=== PATIENT | female | born 1950 | race Caucasian/White ===

== ENCOUNTER → 2023-12-07 10:01 | Outpatient (REF) | payer MEDICARE, SELFPAY ==
[2023-12-07 11:05] LABS: % Basophils 0.5 % (0-2); % Eosinophils 1.6 % (0-6); % Immature Granulocytes 0.3 % (0-0.5); % Lymphocytes 27.9 % (20.5-51.1); % Neutrophils 63.7 % (42.2-75.2); Absolute Eosinophils 0.1 10^3/uL (0-0.7); Absolute Lymphocytes 1.8 10^3/uL (1.2-3.4); Absolute Monocytes 0.4 10^3/uL (0.1-0.6); Absolute Neutrophils 4.1 10^3/uL (1.4-6.5); Hematocrit 41.1 % (37.0-47.0); Hemoglobin 13.7 g/dL (12.0-16.0); Mean Corp Hgb Conc. 33.3 g/dL (33.0-37.0); Mean Corpuscular Hgb 30.1 pg (27.0-31.0); Mean Corpuscular Volume 90.3 fL (81.0-99.0); Mean Platelet Volume 9.2 fL (7.4-10.4); Nucleated Red Blood Cells % 0 %; Platelet Count 284 10^3/uL (130-400); Red Blood Cell Count 4.55 10^6/uL (4.20-5.40); Red Cell Dist. Width 13.6 % (11.5-14.5); White Blood Cell Count 6.4 10^3/uL (4.8-10.8)
[2023-12-07 11:53] LABS: Glycohemoglobin (HgbA1c) 5.7 % (4.0-5.6)
[2023-12-07 12:44] LABS: ALT (SGPT) 19 U/L (0-35); AST (SGOT) 29 U/L (14-36); Alkaline Phosphatase 91 U/L (38-126); Blood Urea Nitrogen 14 mg/dl (7-17); Calcium 9.2 mg/dl (8.4-10.2); Carbon Dioxide 26 mmol/L (22-30); Chloride 104 mmol/L (98-107); Glucose 86 mg/dl (70-99); HDL Cholesterol 58 mg/dl; LDL Cholesterol, Calculated 124 mg/dl; Sodium 139 mmol/L (135-145); Total Bilirubin 0.5 mg/dl (0.2-1.3); Total Cholesterol 232 mg/dl (50-199); Triglyceride 252 mg/dl (10-149); Very Low Density Lipoprotein 50 mg/dl (0-30); eGFR > 60.00
[2023-12-08 15:08] LABS: Lyme Antibody Screen, EIA Presump. Positive (Negative)
== END ==
LOC: REG 10:01
PROVIDERS: ATTENDING PHYSICIAN Physician Assistant
DX: M43.6 Torticollis (principal); R50.9 Fever, unspecified; R52 Pain, unspecified; E78.2 Mixed hyperlipidemia; R51.9 Headache, unspecified; R73.03 Prediabetes
CPT/HCPCS: 36415; 80053; 80061; 83036; 85025; 86617; 86618

== ENCOUNTER → 2024-04-10 11:20 | Outpatient (REF) | payer MEDICARE, SELFPAY | LOC: WDC 11:20 | PROVIDERS: ATTENDING PHYSICIAN Obstetrics & Gynecology Gynecology; FAMILY PHYSICIAN Family Medicine | DX: M85.89 Other specified disorders of bone density and structure, multiple sites (principal); Z12.31 Encounter for screening mammogram for malignant neoplasm of breast | CPT/HCPCS: 77063; 77067; 77080 ==

== ENCOUNTER 2024-04-28 16:54 | Emergency (ER) | payer MEDICARE, SELFPAY ==
[2024-04-28 17:02] VITALS: BP 150/88
[2024-04-28 17:16] LABS: % Eosinophils 3.7 % (0-6); % Immature Granulocytes 0.2 % (0-0.5); % Lymphocytes 33.3 % (20.5-51.1); % Monocytes 7.7 % (1.7-9.3); % Neutrophils 54.1 % (42.2-75.2); Absolute Basophils 0.1 10^3/uL (0-0.2); Absolute Eosinophils 0.2 10^3/uL (0-0.7); Absolute Monocytes 0.5 10^3/uL (0.1-0.6); Absolute Neutrophils 3.2 10^3/uL (1.4-6.5); Hematocrit 43.6 % (37.0-47.0); Hemoglobin 14.7 g/dL (12.0-16.0); Mean Corp Hgb Conc. 33.7 g/dL (33.0-37.0); Mean Corpuscular Hgb 29.5 pg (27.0-31.0); Mean Corpuscular Volume 87.4 fL (81.0-99.0); Mean Platelet Volume 8.9 fL (7.4-10.4); Nucleated Red Blood Cells % 0 %; Platelet Count 323 10^3/uL (130-400); Red Blood Cell Count 4.99 10^6/uL (4.20-5.40); Red Cell Dist. Width 13.2 % (11.5-14.5)
[2024-04-28 17:45] LABS: ALT (SGPT) 26 U/L (0-35); AST (SGOT) 34 U/L (14-36); Albumin 4.1 g/dl (3.5-5.0); Alkaline Phosphatase 103 U/L (38-126); Blood Urea Nitrogen 13 mg/dl (7-17); Calcium 9.6 mg/dl (8.4-10.2); Carbon Dioxide 24 mmol/L (22-30); Chloride 105 mmol/L (98-107); Glucose 113 mg/dl (70-99); Potassium 4.4 mmol/L (3.5-5.1); Sodium 142 mmol/L (135-145); Total Bilirubin 0.3 mg/dl (0.2-1.3); Total Protein 6.9 g/dl (6.3-8.2); eGFR > 60.00
--- NOTE | 2024-04-28 18:27 | ED.GENMED ---
Addendum entered and electronically signed by Maurice Swain PA-C 04/30/24 07:29:
Preliminary Lyme test presumptively positive. Relayed this information to the patient. She states she has a Lyme in the past. Will continue doxycycline until Western blot returns. She was advised that she would receive a call upon receipt of the
Western blot
Original Note:
History of Present Illness
General
Chief Complaint: Headache
Time Seen by Provider: 04/28/24 18:10
History of Present Illness
History of Present Illness:
Patient is a 73-year-old with history of hyperlipidemia, migraines presenting to the emergency department with a headache. Patient states that for the past 3 days she has had a slow developing left-sided headache. It is constant headache to the
left side of her head. It is pounding. She is having some nausea photophobia phonophobia associated with it. She also having some congestion and body wide aches. This is similar to when she had Lyme disease. She states that she has had it 4
times now. Most recently she had Lyme's in November and had the same similar symptoms. She denies any fevers or chills. No neck stiffness. No numbness tingling. No weakness. She did take Tylenol and Excedrin without any relief. She did not take
her triptan's as it was too late. Usually her headaches come and go however this headache has been constant. It is not the worst headache of her life. She denies any vision changes. She does not remember noticing any rashes but does state that
there are frequent ticks on [place]
Past History
Past History
ED Past Medical History: Hypercholesterolemia and Other (OA, renal calc, interstitial cystitis, bowel obstruction)
ED Past Surgical History: Bowel resection (bladder lift) and Gynecological
Social History
Tobacco: Non-smoker
Alcohol: None
Drug: None
Personal:
Living: with family
Employment: Retired
Family History
Family History: Other (Noncontributory)
Phy Exam
Physical Exam
Physical Exam:
GENERAL: in no acute distress
HEENT: normocephalic, extraocular movements intact, moist oral mucosa
NECK: normal inspection
RESPIRATORY: no respiratory distress, clear to auscultation bilaterally
CARDIOVASCULAR: regular rate and rhythm
ABDOMEN/: soft, non-distended, non-tender to palpation, no rebound or guarding
EXTREMITIES: non-tender, no edema/swelling
NEUROLOGIC: alert and oriented x 3, cranial nerves II-XII intact, right upper extremity strength 5/5, left upper extremity strength 5/5, right lower extremity strength 5/5, left lower extremity strength 5/5, normal sensation to light touch, normal
[id number] and [id number], gait not tested formally
SKIN: warm, no rash
Course
Orders/Labs/Results
Orders:
Orders
04/28/24 17:10
CMP [Comprehensive Metabolic Panel] Urgent
Complete Blood Count/With Diff Urgent
Lyme Progressive Urgent
04/28/24 18:24
Diphenhydramine [Benadryl] 25 mg IV NOW STA
Ketorolac [Toradol] 15 mg IV NOW STA
Metoclopramide [Reglan] 10 mg IV NOW STA
04/28/24 18:51
COVID-19 Antigen Urgent
Source: Nasal Swab
Influenza A+B Rapid Molecular Urgent
NEYMAR Source: Nasal Swab
Specimen Description:
04/28/24 19:56
Magnesium Sulfate 1 G/D5w [Magnesium Sulfate] 1 gm in 100 ml IV NOW
Prochlorperazine [Compazine] 5 mg IV NOW STA
Abnormal Lab Results
04/28/24
17:10
Glucose 113 H mg/dl
(70-99)
04/28/24 17:10
04/28/24 17:10
Vital Signs
Initial and Last Documented VS:
Initial Vital Signs
Temp Pulse Resp BP Pulse Ox
98.1 F 85 16 150/88 97
04/28/24 17:02 04/28/24 17:02 04/28/24 17:02 04/28/24 17:02 04/28/24 17:02
Last Documented Vital Signs
Temp Pulse Resp BP Pulse Ox
98.1 F 70 16 145/87 98
04/28/24 17:02 04/28/24 20:00 04/28/24 20:00 04/28/24 19:35 04/28/24 20:00
MDM/Problems Addressed
Differential Diagnosis Includes:
Patient is a 73-year-old woman with history of prior Lyme disease, migraine presenting to the emergency department with a headache for the past few days. Vitals unremarkable and exam does not show any neurological deficits as well as no rashes.
Differential is broad but consists of COVID versus flu versus possibly Lyme. History and exam not consistent with meningitis or subarachnoid. Will check blood work and test for COVID and flu. Will send off Lyme testing. Will give migraine
cocktail. I did consider obtaining CT scan of the head however given that there are no focal neurodeficits at this time and this is similar to prior headaches we will hold off. If the headache has not improved we will then obtain CT scan.
*Critical Care Note
Total Time (30-74mins, 75-104mins- exclusive of procedures): Not Applicable
Update Note
Update Note:
On reevaluation patient states that her headache is slightly improved though she still having significant pain. I did offer CT scan of the head at this time however she does not want to at this time as she strongly believes that is related to her
Lyme disease. I do think this is appropriate as she has no neurological deficits and the headache is improving. I then ordered second line medications to treat her migraine. On further reevaluation patient states that the pain has improved and
she would prefer to go home. I did offer admission however she will come back if anything changes. We did have a risk versus benefit discussion about empirically starting doxycycline for Lyme. At this time we will start with doxycycline. Patient
will follow-up with Lyme results as well as her PCP. Strict return precautions given.
ED Attending Note
-
Portions of this chart may have been created with voice recognition software.� Occasional wrong word or��sound alike� substitutions may have occurred due to the inherent limitations of voice recognition software.
Discharge Plan
Departure
Patient Disposition: Home (Routine Discharge)
Date of Disposition: 04/28/24
Time of Disposition: 21:17
Patient with high blood pressure during this ER visit?: Yes
Discharge Problem:
Headache
Instructions: Lyme Disease (DC), Doxycycline
Prescriptions:
New
doxycycline hyclate 100 mg capsule
100 mg PO BID 14 Days Qty: 28 0RF
No Action
multivitamin with folic acid [Tab-A-Brittnee] 1 TABLET tablet
1 tab PO DAILY
sumatriptan succinate [Imitrex] 100 MG tablet
100 mg PO PRN PRN (Reason: migraine headache)
potassium citrate 10 MEQ tablet extended release
10 meq PO DAILY
calcium carbonate-vitamin D3 [Oyster Shell Calcium-Vit D3] 500 MG tablet
600 mg PO DAILY
conjugated estrogens [Premarin] 1 APPLIC cream
1 applic vaginal PRN PRN (Reason: vaginal)
Patient Comments:
patient reports she typically takes 2x's a week
conjugated estrogens [Premarin] 0.3 MG tablet
0.3 mg PO DAILY
prednisone 10 MG tablet
10 mg PO DAILY Qty: 10 0RF
Rx Instructions:
Take 40mg for 1 day, then 30mg for one day, then 20mg for one day, then 10mg for one day and stop
metronidazole 500 MG tablet
500 mg PO TID Qty: 21 0RF
ciprofloxacin HCl 500 MG tablet
500 mg PO BID Qty: 14 0RF
Referrals:
Yanira Liang MD [Family Provider] -
Activity Restrictions/Additional Instructions:
You were seen in the Emergency Department today for a headache. While you were here we performed blood work, which was reassuring. Your Lyme testing is in progress. I did empirically start you on doxycycline.
We would like for you to follow up with your primary care physician for further evaluation. If you experience fever, worsening of your symptoms, or develop any other new or concerning symptoms, please return to the Emergency Department immediately.
Please see the attached sheet for additional information.
Interventions
Interventions:
*Risk Screen - Suicide Last Done: 04/28/24 17:02
*General Assessment Last Done: 04/28/24 17:02
*Neglect/Abuse Screening Last Done: 04/28/24 18:23
ED- Fall Risk Assessment Last Done: 04/28/24 18:24
*ED COVID-19 Vaccine History Last Done: 04/28/24 17:02
ED- Neurological Assessment Last Done: 04/28/24 18:24
Discharge Date and Time
Print Language: COLOMBIAN
[2024-04-28] MEDS: TORADOL 15 MG IV (18:54)
[2024-04-28] MEDS: REGLAN 10 MG IV (18:54)
[2024-04-28] MEDS: BENADRYL 25 MG IV (18:54)
[2024-04-28 18:59] VITALS: BMI 24.3
[2024-04-28 19:22] LABS: COVID-19 Antigen Negative (Negative)
[2024-04-28 19:35] VITALS: BP 145/87
[2024-04-28] MEDS: MAGNESIUM SULFATE 100 IV (20:09)
[2024-04-28] MEDS: COMPAZINE 5 MG IV (20:09)
[2024-04-28 21:45] VITALS: BP 132/76
[2024-04-29 11:48] LABS: Lyme Antibody Screen, EIA Presump. Positive (Negative)
[2024-05-01 17:32] LABS: Lyme Ab Western Blot IgG Negative (Negative); Lyme Ab Western Blot IgM Negative (Negative)
== END 2024-04-28 21:47 | disposition home or self-care (01) ==
LOC: EMR 16:54
PROVIDERS: Emergency Medicine; EMERGENCY PHYSICIAN Student in an Organized Health Care Education/Training Program; FAMILY PHYSICIAN Family Medicine
DX: R51.9 Headache, unspecified (principal); E78.5 Hyperlipidemia, unspecified; Z86.19 Personal history of other infectious and parasitic diseases
CPT/HCPCS: 99284; 96374; 96375; 80053; 85025; 86617; 86618; 87502; 87811

== ENCOUNTER → 2024-06-05 12:04 | Outpatient (REF) | payer MEDICARE, SELFPAY ==
[2024-06-05 14:17] LABS: Vitamin D, 25-OH*** 39.9 ng/mL (30-80)
[2024-06-05 14:31] LABS: TSH 1.29 uIU/ml (0.47-4.68)
== END ==
LOC: REG 12:04
PROVIDERS: ATTENDING PHYSICIAN Obstetrics & Gynecology Gynecology; FAMILY PHYSICIAN Family Medicine
DX: M81.0 Age-related osteoporosis without current pathological fracture (principal); E55.9 Vitamin D deficiency, unspecified; E03.9 Hypothyroidism, unspecified
CPT/HCPCS: 36415; 82306; 84443

== ENCOUNTER → 2024-08-23 15:10 | Outpatient (REF) | payer MEDICARE, SELFPAY ==
[2024-08-23 15:58] LABS: Urine Albumin Negative (Neg - Trace); Urine Bilirubin Negative (Negative); Urine Character Clear (Clear); Urine Color Yellow; Urine Glucose Negative (Negative); Urine Ketone Negative (Negative); Urine Leukocyte 2+ (Negative); Urine Nitrite Negative (Negative); Urine Occult Blood 3+ (Negative); Urine Specific Gravity 1.015 (<1.030); Urine Urobilinogen Negative (Neg - 1+)
[2024-08-23 16:36] LABS: Urine Squamous Cell >30 /LPF (Few)
[2024-08-23 16:40] LABS: Urine Red Blood Cell 0-2 /HPF (0-2)
== END ==
LOC: REG 15:10
PROVIDERS: ATTENDING PHYSICIAN Physician Assistant
DX: R31.29 Other microscopic hematuria (principal); R30.0 Dysuria
CPT/HCPCS: 81003; 81015; 87077; 87086

== ENCOUNTER → 2025-02-20 14:17 | Outpatient (REF) | payer MEDICARE, SELFPAY | LOC: RAD 14:17 | PROVIDERS: ATTENDING PHYSICIAN Obstetrics & Gynecology Female Pelvic Medicine and Reconstructive Surgery; FAMILY PHYSICIAN Family Medicine | DX: N30.11 Interstitial cystitis (chronic) with hematuria (principal); R31.0 Gross hematuria | CPT/HCPCS: 76770 ==

== ENCOUNTER → 2025-04-15 09:52 | Outpatient (REF) | payer MEDICARE, SELFPAY | LOC: RAD 09:52 | PROVIDERS: ATTENDING PHYSICIAN Family Medicine | DX: R59.1 Generalized enlarged lymph nodes (principal) | CPT/HCPCS: 76536 ==

== ENCOUNTER → 2025-05-07 15:34 | Outpatient (REF) | payer MEDICARE, SELFPAY | LOC: WDC 15:34 | PROVIDERS: ATTENDING PHYSICIAN Obstetrics & Gynecology Gynecology; FAMILY PHYSICIAN Family Medicine | DX: Z12.31 Encounter for screening mammogram for malignant neoplasm of breast (principal); Z12.39 Encounter for other screening for malignant neoplasm of breast | CPT/HCPCS: 77063; 77067 ==